=== PATIENT | female | born 1970 | race Caucasian/White ===

== ENCOUNTER → 2017-05-23 | Outpatient (CLI) | payer OTHER ==
[~2017-05-23] MED LIST: ADVIL LIQUI-GE200 MG PO; ALLEGRA180 MG PO; BYDUREON2 MG SQ; CELEXA 10 MG TA10 M1 PO; GLIPIZIDE XL10 MG PO; GLUCOPHAGE1000 MG PO; LIPITOR40 MG PO; LISINOPRIL10 MG PO; MICROGESTIN FE1 EACH PO; NABUMETONE 750750 M1 PO
== END ==
LOC: RAD 15:25
DX: Z01.818 Encounter for other preprocedural examination (principal)

== ENCOUNTER → 2019-03-30 | Outpatient (CLI) | payer BC, OTHER | LOC: RAD 10:19 | DX: M25.511 Pain in right shoulder (principal) ==

== ENCOUNTER → 2019-09-07 | Outpatient (CLI) | payer BC, OTHER | LOC: RAD 13:14 | DX: R06.02 Shortness of breath (principal) ==

== ENCOUNTER → 2019-11-16 | Outpatient (CLI) | payer BC, OTHER ==
[2019-11-16 09:23] LABS: ABSOLUTE NEUTROPHILS 11.8 thou/uL (1.4-8.2); BASOPHILS 0.3 % (0.0-2.0); EOSINOPHILS 0.1 % (0.0-3.0); HEMATOCRIT 39.2 % (37.0-47.0); HEMOGLOBIN 12.4 gm/dL (12.0-15.0); LYMPHOCYTES 16.4 % (24.0-44.0); MCH 26.3 pg (26.0-34.0); MCHC 31.7 g/dL (28.0-37.0); MCV 83.2 fL (80.0-100.0); MONOCYTES 5.3 % (1.0-8.0); PLATELET COUNT 358 thou/uL (150-400); POLYS 77.9 % (36.0-66.0); RBC 4.71 mil/uL (4.20-5.00); RDW 16.6 % (10.5-14.5); WBC 15.2 thou/uL (4.0-11.0)
--- NOTE | 2019-11-16 10:29 | 2DMMODE ---
[facility] [place] [address] 2 D/M-MODE ECHOCARDIOGRAM Name: YARED ORTEGA Candace Room #: REG [facility]#: [id number] Admission: 11/16/19 Attend Phys: Jeff Vanegas MD Discharge: Date of : 68 Report #: [id number] THIS REPORT FOR: cc: Christiana Kay Beth RNP Lammoglia, Francisco J. MD ~ APPROVED REPORT Study performed: 11/16/2019 09:43:30 EXAM: Comprehensive 2D, Doppler, and color-flow Echocardiogram Patient Location: Out-Patient Status: routine BSA: 2.11 HR: 68 bpm Rhythm: NSR Other Information Study Quality: Adequate Indications Shortness of breath. 2D Dimensions RVDd: 28.04 mm IVSd: 9.27 (7-11mm) LVOT Diam: 21.41 (18-24mm) LVDd: 50.15 mm PWd: 9.16 (7-11mm) Ascending Ao: 31.86 (22-36mm) LVDs: 35.78 (25-40mm) Aortic Root: 33.13 mm Volumes Left Atrial Volume (Systole) Single Plane 4CH: 36.61 mL Single Plane 2CH: 54.69 mL LA ESV Index: 22.00 mL/m2 Aortic Valve AoV Peak Brian.: 1.32 m/s AO Peak Gr.: 6.95 mmHg LVOT Max P.43 mmHg LVOT Max V: 1.16 m/s EZEQUIEL Vmax: 3.18 cm2 [facility] [address] [place] [address] 2 D/M-MODE ECHOCARDIOGRAM Name: ORTEGAYARED Room #: REG [facility]#: [id number] Admission: 11/16/19 Attend Phys: Jennifer Godinez Discharge: Date of : 68 Report #: [id number] Mitral Valve E/A Ratio: 2.0 MV Decel. Time: 229.57 ms MV E Max Brian.: 1.01 m/s MV A Brian.: 0.50 m/s MV PHT: 66.58 ms IVRT: 59.98 ms Pulmonary Valve PV Peak Brian.: 0.90 m/s PV Peak Gr.: 3.27 mmHg Pulmonary Vein P Vein S: 0.60 m/s P Vein A: 0.25 m/s P Vein D: 0.48 m/s P Vein A Dur.: 129.2 msec P Vein S/D Ratio: 1.25 Tricuspid Valve RAP Estimate: 5.00 mmHg Left Ventricle The left ventricle is normal size. There is normal LV segmental wall motion. There is normal left ventricular wall thickness. Left ventricular systolic function is normal. LVEF is 55-60%. The left ventricular diastolic function is normal. Right Ventricle The right ventricle is normal size. The right ventricular systolic function is normal. Atria The left atrium size is normal. The right atrium size is normal. Aortic Valve The aortic valve is normal in structure. No aortic regurgitation is present. There is no aortic valvular stenosis. Mitral Valve The mitral valve is normal in structure. Trace mitral regurgitation. No evidence of mitral valve stenosis. Tricuspid Valve The tricuspid valve is normal in structure. Trace tricuspid regurgitation. Unable to assess PA pressure. Pulmonic Valve [facility] [address] [place] [address] 2 D/M-MODE ECHOCARDIOGRAM Name: JORDANYARED Room #: [facility]#: [id number] Admission: 11/16/19 Attend Phys: Jennifer Godinez Discharge: Date of : 68 Report #: [id number] The pulmonary valve is normal in structure. There is no pulmonic valvular regurgitation. Great Vessels The aortic root is normal in size. The ascending aorta is normal in size. IVC is normal in size and collapses >50% with inspiration. Pericardium There is no pericardial effusion. <Conclusion> The left ventricle is normal size. LVEF is 55-60%. The aortic valve is normal in structure. The mitral valve is normal in structure. Trace mitral regurgitation. The tricuspid valve is normal in structure. Trace tricuspid regurgitation. Unable to assess PA pressure. The pulmonary valve is normal in structure. There is no pericardial effusion. <ELECTRONICALLY SIGNED> By: Yvon Amaral MD 11/16/19 1028 1028 1028 Yvon Amaral MD /INF
== END ==
LOC: CV 10-05 12:47 → CAT 08:25
PROVIDERS: ATTEND Pediatrics
DX: R91.8 Other nonspecific abnormal finding of lung field (principal); I25.10 Atherosclerotic heart disease of native coronary artery without angina pectoris; M25.78 Osteophyte, vertebrae; K44.9 Diaphragmatic hernia without obstruction or gangrene; Z90.49 Acquired absence of other specified parts of digestive tract

== ENCOUNTER 2019-12-01 10:10 | Emergency (ER) | payer BC, OTHER ==
[~2019-12-01] VITALS: Ht 167.6 cm; Wt 104.3 kg
[2019-12-01] MEDS ORDERED: LEVAQUIN 500 M500 M3 PO (10:23)
[2019-12-01 10:48] LABS: URINE BILIRUBIN NEGATIVE (Negative); URINE BLOOD NEGATIVE (Negative); URINE CLARITY CLEAR; URINE COLOR YELLOW; URINE GLUCOSE-RANDOM* NEGATIVE (Negative); URINE KETONES NEGATIVE (Negative); URINE LEUKOCYTES-REFLEX NEGATIVE (Negative); URINE NITRITE-REFLEX NEGATIVE (Negative); URINE PROTEIN (DIPSTICK) NEGATIVE (Negative); URINE SPECIFIC GRAVITY >= 1.030 (1.005-1.035); URINE UROBILINOGEN 0.2 E.U./dl (0.2-1.0)
[2019-12-01] MEDS ORDERED: GABAPENTIN100 MG PO (11:47)
[2019-12-01 11:52] VITALS: BP 110/54
== END 2019-12-01 11:53 | disposition home or self-care (01) ==
LOC: ER 10:10
PROVIDERS: Emergency Medicine
DX: M54.5 Low back pain (principal); G89.29 Other chronic pain; E11.9 Type 2 diabetes mellitus without complications; J45.909 Unspecified asthma, uncomplicated; E78.00 Pure hypercholesterolemia, unspecified; F32.9 Major depressive disorder, single episode, unspecified; Z90.89 Acquired absence of other organs; Z90.49 Acquired absence of other specified parts of digestive tract; Z79.2 Long term (current) use of antibiotics; Z79.899 Other long term (current) drug therapy; Z88.0 Allergy status to penicillin

== ENCOUNTER → 2020-03-17 | Outpatient (CLI) | payer BC, OTHER ==
[~2020-03-17] MED LIST changes: +GABAPENTIN100 MG PO; +LEVAQUIN 500 M500 M3 PO
== END ==
LOC: LAB 12:17
PROVIDERS: ATTEND Nurse Practitioner
DX: Z01.812 Encounter for preprocedural laboratory examination (principal); Z20.828 Contact with and (suspected) exposure to other viral communicable diseases

== ENCOUNTER → 2020-03-22 | Outpatient (CLI) | payer BC, OTHER | LOC: LAB 10:54 | PROVIDERS: ATTEND Neuromusculoskeletal Medicine & OMM | DX: Z20.828 Contact with and (suspected) exposure to other viral communicable diseases (principal) ==

== ENCOUNTER → 2020-04-20 | Outpatient (CLI) | payer BC, OTHER | LOC: RAD 12:02 | PROVIDERS: ATTEND Nurse Practitioner | DX: M77.32 Calcaneal spur, left foot (principal) ==

== ENCOUNTER → 2020-08-31 | Outpatient (CLI) | payer BC, OTHER | LOC: LAB 14:51 | PROVIDERS: ATTEND Nurse Practitioner | DX: J02.9 Acute pharyngitis, unspecified (principal); R50.9 Fever, unspecified; Z20.822 Contact with and (suspected) exposure to COVID-19 ==

== ENCOUNTER → 2021-05-04 | Outpatient (CLI) | payer BC, OTHER ==
--- NOTE | 2021-05-24 13:39 | PFR/MVV ---
[facility] [place] [address] PULMONARY FUNCTION MVV/REPORT Name: YARED ORTEGA Room #: REG [facility]#: [id number] Admission: 05/04/21 Attend Phys: Jeff Vanegas MD Discharge: Date of : 68 Report #: [id number] THIS REPORT FOR: //name// >> SPIROMETRY: (BTPS) Height: 65 in cm Weight: 244 lbs kg Exam Date: 05/04/21 PRE-RX POST-RX PRED BEST %PRED BEST %PRED %CHG FVC LITERS . 3.40 . 3.34 . 98 . 3.60 . 106 . 8 FEV1 LITERS . 2.58 . 2.61 . 101 . 3.02 . 117 . 16 FEV1/FVC % . 75 . 78 . 104 . 84 . 112 . 7 [id number]% L/Sec . 2.92 . 2.42 . 83 . 3.45 . 118 . 43 PEF L/SEC . 3.64 . 3.38 . 93 . 4.23 . 116 . 25 FEF50/FIF50 UNITLESS . 6.08 . 5.71 . 94 . 6.33 . 104 . 11 MVV L/Min . 99 . 75 . 76 f 1/Min . . . . >> LUNG VOLUMES: (BTPS) PRE-RX POST-RX PRED AVG %PRED AVG %PRED %CHG VC Liters . 3.40 . 3.34 . 98 . . . TLC Liters . 5.17 . 3.96 . 77 . . . RV Liters . 1.84 . 0.62 . 33 . . . RV/TLC % . 35 . 16 . 44 . . . FRC PL Liters . 2.16 . 1.54 . 71 . . . FRC N2 Liters . 2.16 . . . . . ERV Liters . 1.13 . 0.70 . 62 . . . IC Liters . 2.25 . 2.42 . 108 . . . >> DIFFUSION: DLCO ml/Min/mmHg . 27.9 . 24.4 . 88 . . . DL [place] ml/Min/mmHg . 27.9 . 24.4 . 88 . . . DLCO/VA ml/Min/mmHg . 3.99 . 5.44 . 136 . . . VA Liters . . 4.49 . . . . COMMENTS: COMMENTS: >> RESISTANCE: [facility] [address] [place] [address] PULMONARY FUNCTION MVV/REPORT Name: YARED ORTEGA Candace Room #: [facility].#: [id number] Admission: 05/04/21 Attend Phys: Jeff Vanegas MD Discharge: Date of : 68 Report #: [id number] PRE-RX PRED AVG %PRED Raw Total cmH20/L/Sec . . 13.59 . Raw Insp cmH20/L/Sec . . 12.49 . Raw Exp cmH20/L/Sec . . 17.92 . Raw cmH20/L/Sec . 1.83 . 8.66 . 474 Gaw L/Sec/cmH20 . 0.517 . 0.115 . 22 sRaw cmH20 Sec . 3.94 . 20.54 . 521 sGaw l/cmH20 Sec . 0.254 . 0.049 . 19 Vtq Liters . . 2.37 . # = OUTSIDE 95% CONFIDENCE INTERVAL CALIBRATION: PRED: 3.00 ACTUAL: EXP 3.01 INSP 3.02 [facility] N-1804-4 >> INTERPRETATION/IMPRESSION: DATE OF SERVICE: 05/04/2021 The patient's pulmonary function studies are consistent with ____ function. There is no obstructive or restrictive airflow defect. There is a significant response to bronchodilator therapy. Diffusing capacity is normal. <ELECTRONICALLY SIGNED> By: Jeff Vanegas MD 05/24/21 1339 Jeff Vanegas MD /nt
== END ==
LOC: CAT 05-03 14:21 → TBA 07:51 → CAT 07:51
PROVIDERS: ATTEND Pediatrics
DX: J98.4 Other disorders of lung (principal); R06.02 Shortness of breath; Z20.822 Contact with and (suspected) exposure to COVID-19; I25.10 Atherosclerotic heart disease of native coronary artery without angina pectoris; K44.9 Diaphragmatic hernia without obstruction or gangrene; M25.78 Osteophyte, vertebrae